=== PATIENT | female | born 1930 | race Caucasian/White ===

== ENCOUNTER → 2017-01-23 | Outpatient (CLI) | payer MEDICARE, BC ==
--- NOTE | ~2017-01-23 | CT71 ---
[facility] A Service of [facility] RADIOLOGY TEXT RESULTS PATIENT: MADALYN SHIN LOCATION: [facility] : 32 UNIT #: [id number] AGE: [address]: CARRIE HICKMAN SEX: F ORDER DR: [id number] [facility] [address] [place], [place] [address] [id number] O MR#: [id number] #: [id number] NAME: MADALYN SHIN : 1930 SEX: F STUDY DATE/TIME: 01/23/2017 10:41 UNIT: [facility] ROOM: STUDY DESCRIPTION: CT Head Wo Contrast Attending Physician: Carrie Hickman Referring Physician: Carrie Hickman Ordering Physician: Physician Non-Staff Primary Care Physician: Tr Gamboa Jr., D.O. MEDICAL IMAGING REPORT This report is preliminary unless electronic signature is present EXAM CT of the head without contrast INDICATION Fell out bed. Hit the right side of her head on a night stand and has swelling and pain in the right frontal region. This has been present since [address] images were obtained from the vertex of the skull through the skull base. No intravenous contrast was administered. This CT exam was performed with one or more of the following radiation dose reduction techniques: automatic exposure control, adjustment of mA and/or kV according to patient size, and iterative reconstruction. FINDINGS No acute intracranial hemorrhage is identified. There is some mild cerebral atrophy which is certainly in keeping with the age of 86. I do not see any midline shift or mass effect. No focal areas of decreased attenuation are seen. No calvarial fracture is identified although the patient does have soft tissue swelling overlying the right frontal region with soft tissue hematoma noted within the right supraorbital region. This measures up to about 4.2 x 1.0 cm. No postseptal involvement is seen. An additional area of hematoma is seen more superiorly and measures about 2.0 x 0.9 cm cm. There is some mucosal thickening involving the ethmoid sinuses and probable mucous retention cyst within the right sphenoid sinus. Mastoid air cells appear clear. There is a partially calcified mass seen in the left cerebellopontine angle which is favored to represent a meningioma. It measures about 1.1 x 1.1 cm. MRI could certainly be considered for additional evaluation on a non-emergent outpatient basis. [facility] A Service of [facility] RADIOLOGY TEXT RESULTS PATIENT: MADALYN SHIN LOCATION: [facility] : 32 UNIT #: [id number] AGE: [address]: CARRIE HICKMAN SEX: F ORDER DR: IMPRESSION 1. No acute intracranial hemorrhage identified. 2. Soft tissue contusion/hematoma overlying the right frontal region and right supraorbital region without underlying fracture. 3. This patient has partially calcified mass arising over the left cerebellopontine angle favored to represent a meningioma. MRI could be considered for additional evaluation on a non-emergent outpatient basis if deemed clinically appropriate. STAT * RESULT Dictated by... Ema Cano M.D. THIS IS AN ELECTRONICALLY VERIFIED REPORT Ema Cano M.D. at 01/23/2017 4:29 PM THIERNO/mauricio TD: 01/23/2017 12:10 JOB #: [id number] MEDICAL IMAGING REPORT Page 1 of 1 COPY
[2017-01-23 11:31] LABS: POC - CREATININE 0.83 mg/dL (0.44-1.03); POC - GFR >60.0 mL/min (>60)
== END | disposition home or self-care (01) ==
LOC: CCAT 10:09
PROVIDERS: Optometrist
DX: S05.11XA Contusion of eyeball and orbital tissues, right eye, initial encounter (principal)
CPT/HCPCS: 70450; 82565

== ENCOUNTER → 2017-05-18 | Outpatient (CLI) | payer MEDICARE, BC ==
[2017-05-18 16:01] LABS: HEMATOCRIT 41.7 % (35.0-45.0); HEMOGLOBIN 13.9 gm/dL (12.0-16.0); MEAN CELL VOLUME 85.7 FL (83-96); MEAN CORPUSCULAR HEMOGLOBIN 28.6 PG (28-34); MEAN CORPUSCULAR HGB CONC 33.4 g/dL (30-36); MEAN PLATELET VOLUME 7.8 FL (6.5-11.5); RED BLOOD COUNT 4.86 X10e (3.90-5.30); RED CELL DISTRIBUTION WIDTH 15.5 % (11.0-15.5); WHITE BLOOD COUNT 6.7 X10e3 (4.0-10.5)
[2017-05-18 16:36] LABS: THYROID STIMULATING HORMONE 2.63 uIU/ml (0.34-5.60)
[2017-05-18 16:38] LABS: ALBUMIN SERUM 4.2 g/dL (3.5-5.0); BILIRUBIN,TOTAL 0.8 mg/dL (0.2-2.0); BUN/CREATININE RATIO 16.15; CALCIUM SERUM 9.5 mg/dL (8.4-10.2); CREATININE SERUM 1.3 mg/dL (0.6-1.4); GLOM FILT RATE Estimated 37.4 mL/min (>60); POTASSIUM 4.5 mmol/L (3.5-5.1); PROTEIN TOTAL SERUM 7.3 g/dL (6.0-8.3)
[2017-05-18 16:41] LABS: FREE T3 3.1 pg/mL (2.5-3.9)
[2017-05-18 16:42] LABS: FREE THYROXIN (T4) 1.01 ng/dL (0.58-1.64)
== END | disposition home or self-care (01) ==
LOC: CLAB 15:39
PROVIDERS: Internal Medicine
DX: E01.0 Iodine-deficiency related diffuse (endemic) goiter (principal); M79.1 Myalgia; D64.9 Anemia, unspecified; E55.9 Vitamin D deficiency, unspecified; E78.5 Hyperlipidemia, unspecified; Z79.899 Other long term (current) drug therapy
CPT/HCPCS: 36415; 80053; 80061; 82306; 82550; 84439; 84443; 84481; 85027